=== PATIENT | male | born 1955 | race Caucasian/White ===

== ENCOUNTER 2020-06-19 08:43 | Outpatient (REF) | payer BC, SELFPAY ==
[2020-06-19 09:19] LABS: MANUAL DIFF FLAG NO
[2020-06-19 09:41] LABS: Glucose Urine UA NEG (NEG); Leukocyte Esterase Urine NEG (NEG); Nitrite Urine NEG (NEG); PH 6.5 (5.0-8.0); Specific Gravity - Urine 1.025 (1.005-1.025); Urine Blood NEG (NEG); Urine Ketones NEG (NEG); Urine Protein NEG (NEG-TRACE)
[2020-06-19 09:43] LABS: Basophils Absolute Auto 0.1 X10*3/uL (0.0-0.2); Basophils Percent Auto 0.7 % (0-2); Eosinophils Absolute Auto 0.2 X10*3/uL (0.0-0.4); Eosinophils Percent Auto 2.9 % (0-4); Hematocrit 48.1 % (42-52); Hemoglobin 15.7 g/dl (14.0-18.0); Imm Gran Abs Auto 0.04 X10*3/uL (0.00-0.03); Imm Gran Pct Auto 0.5 % (0.0-0.4); Lymphocytes Absolute Auto 3.4 X10*3/uL (1.2-4.9); Mean Corpuscular HGB Conc 32.6 g/dl (31.0-36.0); Mean Corpuscular Hemoglobin 30.4 pg (27.0-33.0); Mean Platelet Volume 10.2 fL (9.4-12.4); Monocytes Absolute Auto 0.5 X10*3/uL (0.1-1.2); Monocytes Percent Auto 6.7 % (2-11); Neutrophils Absolute Auto 3.2 X10*3/uL (2.0-8.3); Neutrophils Percent Auto 43.2 % (45-73); Platelet Count 256 X10*3/uL (160-400); Red Blood Count 5.17 X10*6/uL (4.60-5.80); Red Cell Distribution Width 12.9 % (11.0-16.0); White Blood Count 7.4 X10*3/uL (4.8-10.8)
[2020-06-19 09:44] LABS: Appearance Urine CLEAR; Color Urine YELLOW
[2020-06-19 10:19] LABS: Alanine Aminotransferase 24 U/L (0-40); Albumin Level 4.1 g/dL (3.5-5.0); Alkaline Phosphatase 80 U/L (39-117); Anion Gap 11 (12-20); Aspartate Amino Transferase 20 U/L (5-37); Bilirubin Total 0.7 mg/dL (0.0-1.0); Blood Urea Nitrogen 17 mg/dL (9-16); Calcium 8.7 mg/dL (8.4-10.2); Carbon Dioxide 32 mmol/L (22-29); Chloride 103 mmol/L (96-108); Cholesterol 204 mg/dL; Estimated Glomerular Filt Rate > 60; Glucose Fasting 89 mg/dL (60-99); HDL Cholesterol 47 mg/dL; LDL Cholesterol Calculated 128 mg/dl; Potassium 4.1 mmol/L (3.3-5.1); Sodium 142 mmol/L (135-145); Total Protein 6.6 g/dL (6.5-8.0); Triglycerides 149 mg/dL
[2020-06-19 10:43] LABS: Prostate Specific Antigen 1.03 ng/mL (<0.05-4.0)
== END 2020-06-19 08:44 | disposition home or self-care (01) ==
LOC: HO.LAB 08:43
PROVIDERS: PCP Internal Medicine; Visit Provider Internal Medicine
DX: Z12.5 Encounter for screening for malignant neoplasm of prostate (principal); Z00.00 Encounter for general adult medical examination without abnormal findings; E78.00 Pure hypercholesterolemia, unspecified; D72.820 Lymphocytosis (symptomatic); I10 Essential (primary) hypertension
CPT/HCPCS: 36415; 80053; 80061; 81003; 84153; 85025

== ENCOUNTER 2021-07-02 10:24 | Outpatient (REF) | payer MEDICARE, SELFPAY ==
[2021-07-02 10:27] LABS: MANUAL DIFF FLAG NO
[2021-07-02 10:54] LABS: Basophils Percent Auto 0.5 % (0-2); Eosinophils Absolute Auto 0.2 X10*3/uL (0.0-0.4); Eosinophils Percent Auto 2.5 % (0-4); Hematocrit 47.6 % (42.0-52.0); Hemoglobin 15.4 g/dl (14.0-18.0); Imm Gran Abs Auto 0.03 X10*3/uL (0.00-0.03); Imm Gran Pct Auto 0.4 % (0.0-0.4); Lymphocytes Absolute Auto 4.2 X10*3/uL (1.2-4.9); Mean Corpuscular HGB Conc 32.4 g/dl (31.0-36.0); Mean Corpuscular Hemoglobin 29.8 pg (27.0-33.0); Mean Corpuscular Volume 92.1 fL (80.0-98.0); Mean Platelet Volume 10.2 fL (9.4-12.4); Monocytes Absolute Auto 0.6 X10*3/uL (0.1-1.2); Monocytes Percent Auto 6.6 % (2-11); Neutrophils Absolute Auto 3.4 x10*3/uL (2.0-8.3); Platelet Count 287 X10*3/uL (160-400); Red Blood Count 5.17 X10*6/uL (4.60-5.80); Red Cell Distribution Width 12.6 % (11.0-16.0); White Blood Count 8.4 X10*3/uL (4.8-10.8)
[2021-07-02 11:01] LABS: Appearance Urine CLEAR; Color Urine YELLOW; Glucose Urine UA NEG (NEG); Leukocyte Esterase Urine NEG (NEG); Nitrite Urine NEG (NEG); PH 7.5 (5.0-8.0); Urine Blood NEG (NEG); Urine Ketones NEG (NEG); Urine Protein NEG (NEG-TRACE)
[2021-07-02 11:04] LABS: Alanine Aminotransferase 22 U/L (0-40); Alkaline Phosphatase 85 U/L (39-117); Anion Gap 15 (12-20); Aspartate Amino Transferase 20 U/L (5-37); Bilirubin Total 0.8 mg/dL (0.0-1.0); Blood Urea Nitrogen 16 mg/dL (9-16); Calcium 9.1 mg/dL (8.4-10.2); Carbon Dioxide 29 mmol/L (22-29); Chloride 102 mmol/L (96-108); Cholesterol 209 mg/dL; Estimated Glomerular Filt Rate > 60; Glucose Fasting 94 mg/dL (60-99); HDL Cholesterol 43 mg/dL; LDL Cholesterol Calculated 136 mg/dl; Potassium 3.9 mmol/L (3.3-5.1); Sodium 142 mmol/L (135-145); Total Protein 6.7 g/dL (6.5-8.0); Triglycerides 152 mg/dL
[2021-07-02 11:30] LABS: PSA,Total (Free>4and<10) 0.93 ng/mL (0.00-4.00)
== END 2021-07-02 10:25 | disposition home or self-care (01) ==
LOC: HO.LNP 10:24
PROVIDERS: PCP Internal Medicine; Visit Provider Internal Medicine
DX: Z12.5 Encounter for screening for malignant neoplasm of prostate (principal); I10 Essential (primary) hypertension; E78.00 Pure hypercholesterolemia, unspecified; D72.820 Lymphocytosis (symptomatic)
CPT/HCPCS: 80053; 80061; 81003; 84153; 85025

== ENCOUNTER 2022-07-04 11:07 | Outpatient (REF) | payer MEDICARE, SELFPAY ==
[2022-07-04 11:10] LABS: MANUAL DIFF FLAG NO
[2022-07-04 11:59] LABS: Appearance Urine Clear; Basophils Absolute Auto 0.1 X10*3/uL (0.0-0.2); Basophils Percent Auto 0.7 % (0-2); Color Urine Yellow; Eosinophils Absolute Auto 0.1 X10*3/uL (0.0-0.4); Eosinophils Percent Auto 1.6 % (0-4); Glucose Urine UA Negative (Negative); Hematocrit 46.9 % (42.0-52.0); Hemoglobin 15.6 g/dl (14.0-18.0); Imm Gran Pct Auto 1.3 % (0.0-0.4); Leukocyte Esterase Urine Negative (Negative); Lymphocytes Percent Auto 53.3 % (20-40); Mean Corpuscular HGB Conc 33.3 g/dl (31.0-36.0); Mean Corpuscular Hemoglobin 31.5 pg (27.0-33.0); Mean Corpuscular Volume 94.6 fL (80.0-98.0); Mean Platelet Volume 9.7 fL (9.4-12.4); Monocytes Absolute Auto 0.8 X10*3/uL (0.1-1.2); Monocytes Percent Auto 10.5 % (2-11); Neutrophils Absolute Auto 2.4 x10*3/uL (2.0-8.3); Neutrophils Percent Auto 32.6 % (45-73); Nitrite Urine Negative (Negative); Platelet Count 206 X10*3/uL (160-400); Red Blood Count 4.96 X10*6/uL (4.60-5.80); Urine Blood Negative (Negative); Urine Ketones Negative (Negative); Urine Protein Negative (Neg-Trace); White Blood Count 7.5 X10*3/uL (4.8-10.8)
[2022-07-04 12:09] LABS: Bacteria Urine None Seen (None Seen); Hyaline Casts Urine 0-2 /LPF (0-2); RBC Urine 0-2 /HPF (0-2); Squamous Epithelial Cell Urine 0-2 /HPF (0-2); WBC Urine 0-5 /HPF (0-5)
[2022-07-04 12:56] LABS: Alanine Aminotransferase 74 U/L (0-40); Albumin Level 3.8 g/dL (3.5-5.0); Alkaline Phosphatase 41 U/L (39-117); Anion Gap 11 (12-20); Aspartate Amino Transferase 27 U/L (5-37); Bilirubin Total 1.3 mg/dL (0.0-1.0); Blood Urea Nitrogen 23 mg/dL (9-16); Calcium 8.6 mg/dL (8.4-10.2); Carbon Dioxide 31 mmol/L (22-29); Chloride 105 mmol/L (96-108); Cholesterol 177 mg/dL; Estimated Glomerular Filt Rate > 60; Glucose Fasting 78 mg/dL (60-99); HDL Cholesterol 57 mg/dL; LDL Cholesterol Calculated 93 mg/dl; Potassium 3.7 mmol/L (3.3-5.1); Sodium 143 mmol/L (135-145); Total Protein 5.6 g/dL (6.5-8.0); Triglycerides 137 mg/dL
[2022-07-04 13:03] LABS: PSA,Total (Free>4and<10) 0.57 ng/mL (0.00-4.00)
== END 2022-07-04 11:08 | disposition home or self-care (01) ==
LOC: HO.LNP 11:07
PROVIDERS: Visit Provider Internal Medicine
DX: I10 Essential (primary) hypertension (principal); E78.00 Pure hypercholesterolemia, unspecified; D72.820 Lymphocytosis (symptomatic); Z12.5 Encounter for screening for malignant neoplasm of prostate
CPT/HCPCS: 80053; 80061; 81001; 84153; 85025

== ENCOUNTER 2023-01-19 10:47 | Outpatient (REF) | payer MEDICARE, SELFPAY ==
[2023-01-19 11:29] LABS: Cholesterol 218 mg/dL (<200); HDL Cholesterol 54 mg/dL (>40); LDL Cholesterol Calculated 134 mg/dL (<100); Triglycerides 151 mg/dL (<150)
[2023-01-19 11:30] LABS: Alanine Aminotransferase 31 U/L (0-40); Albumin Level 3.7 g/dL (3.5-5.0); Alkaline Phosphatase 43 U/L (39-117); Aspartate Amino Transferase 17 U/L (5-37); Bilirubin Direct 0.2 mg/dL (0.0-0.5); Bilirubin Total 0.6 mg/dL (0.0-1.0); Total Protein 5.9 g/dL (6.5-8.0)
[2023-01-19 11:57] LABS: Reflex LDLD? No
== END 2023-01-19 10:48 | disposition home or self-care (01) ==
LOC: HO.LNP 10:47
PROVIDERS: PCP Internal Medicine; Visit Provider Internal Medicine
DX: E78.00 Pure hypercholesterolemia, unspecified (principal)
CPT/HCPCS: 80061; 80076

== ENCOUNTER 2023-07-09 12:16 | Outpatient (REF) | payer MEDICARE, SELFPAY ==
[2023-07-09 12:20] LABS: MANUAL DIFF FLAG NO
[2023-07-09 13:01] LABS: Appearance Urine Cloudy; Color Urine Yellow; Glucose Urine UA Negative (Negative); Leukocyte Esterase Urine Negative (Negative); Nitrite Urine Negative (Negative); UMIC TRIGGER UACC YES; Urine Blood Negative (Negative); Urine Ketones Negative (Negative); Urine Protein 30 (1+) mg/dL (Neg-Trace)
[2023-07-09 13:03] LABS: Basophils Absolute Auto 0.1 X10*3/uL (0.0-0.2); Basophils Percent Auto 0.7 % (0-2); Eosinophils Absolute Auto 0.3 X10*3/uL (0.0-0.4); Eosinophils Percent Auto 3.9 % (0-4); Hemoglobin 16.3 g/dl (14.0-18.0); Imm Gran Abs Auto 0.02 X10*3/uL (0.00-0.03); Imm Gran Pct Auto 0.3 % (0.0-0.4); Lymphocytes Absolute Auto 3.6 X10*3/uL (1.2-4.9); Lymphocytes Percent Auto 47.5 % (20-40); Mean Corpuscular HGB Conc 33.3 g/dl (31.0-36.0); Mean Corpuscular Hemoglobin 30.5 pg (27.0-33.0); Mean Corpuscular Volume 91.8 fL (80.0-98.0); Mean Platelet Volume 9.8 fL (9.4-12.4); Monocytes Absolute Auto 0.5 X10*3/uL (0.1-1.2); Monocytes Percent Auto 6.4 % (2-11); Neutrophils Absolute Auto 3.2 x10*3/uL (2.0-8.3); Neutrophils Percent Auto 41.2 % (45-73); Platelet Count 305 X10*3/uL (160-400); Red Blood Count 5.34 X10*6/uL (4.60-5.80); Red Cell Distribution Width 12.3 % (11.0-16.0); White Blood Count 7.7 X10*3/uL (4.8-10.8)
[2023-07-09 13:15] LABS: Alanine Aminotransferase 20 U/L (0-40); Albumin Level 4.1 g/dL (3.5-5.0); Alkaline Phosphatase 67 U/L (39-117); Anion Gap 14 (12-20); Aspartate Amino Transferase 23 U/L (5-37); Bilirubin Total 0.5 mg/dL (0.0-1.0); Blood Urea Nitrogen 14 mg/dL (9-16); Calcium 9.1 mg/dL (8.4-10.2); Carbon Dioxide 32 mmol/L (22-29); Chloride 102 mmol/L (96-108); Cholesterol 232 mg/dL (<200); Estimated Glomerular Filt Rate > 60; Glucose Fasting 83 mg/dL (60-99); HDL Cholesterol 43 mg/dL (>40); LDL Cholesterol Calculated 152 mg/dL (<100); Potassium 3.9 mmol/L (3.3-5.1); Sodium 144 mmol/L (135-145); Total Protein 6.9 g/dL (6.5-8.0); Triglycerides 185 mg/dL (<150)
[2023-07-09 13:25] LABS: Bacteria Urine None Seen (None Seen); Hyaline Casts Urine 0-2 /LPF (0-2); RBC Urine 0-2 /HPF (0-2); Squamous Epithelial Cell Urine 0-2 /HPF (0-2); UACC Culture Trigger YES
[2023-07-09 13:34] LABS: PSA,Total (Free>4and<10) 0.55 ng/mL (0.00-4.00)
== END 2023-07-09 12:17 | disposition home or self-care (01) ==
LOC: HO.LNP 12:16
PROVIDERS: Visit Provider Internal Medicine
DX: I10 Essential (primary) hypertension (principal); E78.00 Pure hypercholesterolemia, unspecified; D72.820 Lymphocytosis (symptomatic); R82.90 Unspecified abnormal findings in urine; Z12.5 Encounter for screening for malignant neoplasm of prostate
CPT/HCPCS: 80053; 80061; 81001; 84153; 85025; 87086

== ENCOUNTER 2024-07-11 10:52 | Outpatient (REF) | payer MEDICARE, SELFPAY ==
[2024-07-11 10:55] LABS: MANUAL DIFF FLAG NO
[2024-07-11 11:06] LABS: Basophils Absolute Auto 0.1 X10*3/uL (0.0-0.2); Basophils Percent Auto 0.8 % (0-2); Eosinophils Absolute Auto 0.3 X10*3/uL (0.0-0.4); Eosinophils Percent Auto 3.4 % (0-4); Hematocrit 45.6 % (42.0-52.0); Imm Gran Abs Auto 0.04 X10*3/uL (0.00-0.03); Imm Gran Pct Auto 0.5 % (0.0-0.4); Lymphocytes Absolute Auto 3.6 X10*3/uL (1.2-4.9); Lymphocytes Percent Auto 46.6 % (20-40); Mean Corpuscular HGB Conc 32.9 g/dl (31.0-36.0); Mean Corpuscular Hemoglobin 30.6 pg (27.0-33.0); Mean Corpuscular Volume 93.1 fL (80.0-98.0); Mean Platelet Volume 9.9 fL (9.4-12.4); Monocytes Absolute Auto 0.5 X10*3/uL (0.1-1.2); Monocytes Percent Auto 5.9 % (2-11); Neutrophils Absolute Auto 3.3 x10*3/uL (2.0-8.3); Neutrophils Percent Auto 42.8 % (45-73); Platelet Count 298 X10*3/uL (160-400); Red Cell Distribution Width 13.2 % (11.0-16.0); White Blood Count 7.7 X10*3/uL (4.8-10.8)
[2024-07-11 11:08] LABS: Appearance Urine Clear; Color Urine Yellow; Glucose Urine UA Negative (Negative); Leukocyte Esterase Urine Negative (Negative); Nitrite Urine Negative (Negative); Urine Blood Negative (Negative); Urine Ketones Negative (Negative); Urine Protein Negative (Neg-Trace)
[2024-07-11 11:13] LABS: Bacteria Urine None Seen (None Seen); Hyaline Casts Urine 0-2 /LPF (0-2); RBC Urine 0-2 /HPF (0-2); Squamous Epithelial Cell Urine 0-2 /HPF (0-2); WBC Urine 0-5 /HPF (0-5)
[2024-07-11 11:33] LABS: Alanine Aminotransferase 29 U/L (0-40); Albumin Level 3.8 g/dL (3.5-5.0); Alkaline Phosphatase 62 U/L (39-117); Anion Gap 11 (12-20); Aspartate Amino Transferase 25 U/L (5-37); Bilirubin Total 0.4 mg/dL (0.0-1.0); Blood Urea Nitrogen 21 mg/dL (9-16); Calcium 8.9 mg/dL (8.4-10.2); Carbon Dioxide 32 mmol/L (22-29); Chloride 104 mmol/L (96-108); Cholesterol 209 mg/dL (<200); Estimated Glomerular Filt Rate > 60; Glucose Fasting 84 mg/dL (60-99); HDL Cholesterol 46 mg/dL (>40); LDL Cholesterol Calculated 134 mg/dL (<100); Potassium 3.9 mmol/L (3.3-5.1); Sodium 143 mmol/L (135-145); Total Protein 6.7 g/dL (6.5-8.0); Triglycerides 148 mg/dL (<150)
[2024-07-11 11:39] LABS: PSA,Total (Free>4and<10) 0.82 ng/mL (0.00-4.00)
--- OUTSIDE RECORDS SUMMARY | 2024-07-11 12:51 | XMS_ITS | Clinical Summary ---
Author Organization [facility] Address [address] [id number] Care Team Providers Care Cook Fishing Vessel Name Role Phone Kurtis Garcia MD Primary Care Provider Allergies Active Allergy Reactions Criticality Noted Date Comments Sulfa Antibiotics Other (See Comments) High 07/14/19 24 No longer uses after having an issue With WBC's dropping ended up in ICU. Medications Medication Sig Dispensed Refills Start Date End Date Status adalimumab (Humira, 2 Pen,) 40 MG/0.8ML injection Inject 0.8 mL (40 mg total) under the skin every 14 (fourteen) days. Stopping 07/19/[address] Burns 0 Active lisinopril-hydroCHLO ROthiazide (PRINZIDE,ZESTORETIC ) tablet 20-25 mg Take 1 tablet by mouth daily. 0 Active oxyCODONE (ROXICODONE) 5 MG immediate release tablet Take 1 tablet (5 mg total) by mouth every 4 (four) hours as needed for pain. 40 tablet 0 07/27/2023 Active methocarbamol (ROBAXIN) 750 MG tablet Take 1 tablet (750 mg total) by mouth 4 (four) times a day. 45 tablet 0 07/27/2023 Active ondansetron (Zofran) 4 MG tablet Take 1 tablet (4 mg total) by mouth daily as needed for nausea. 20 tablet 0 07/27/2023 Active Active Problems Problem Noted Date Diagnosed Date Psoriatic arthritis 07/15/2023 Temporal arteritis 07/15/2023 Obesity (BMI 30-39.9) 07/15/2023 Osteoarthritis of right hip 07/15/2023 History of hypertension 07/15/2023 Family History Medical History Relation Name Comments Heart disease Father Anesthesia problems Sister Pulmonary embolism Sister Relation Name Status Comments Father (Age 60) Mother (Age 90) dementia Sister Social History Tobacco Use Types Packs/Day Years Used Date Smoking Tobacco: Never Smokeless Tobacco: Never Tobacco Cessation:Counseling Given: Not Answered Alcohol Use Standard Drinks/Week Comments Not Currently 0 (1 standard drink = 0.6 oz pur e alcohol) Sex and Gender Information Value Date Recorded Sex Assigned at Male 07/14/2023 9:26 AM EST Gender Identity Male 07/14/2023 9:26 AM EST Sexual Orientation Not on file Job Start Date Occupation Industry Not on file Not on file Not on file Last Filed Vital Signs Vital Sign Reading Time Taken Comments Blood Pressure 142/77 07/27/2023 11:00 AM EDT Pulse 79 07/27/2023 11:00 AM EDT Temperature 36.6 ??C (97.8 ??F) 07/27/2023 10:45 AM E DT Respiratory Rate 15 07/27/2023 11:00 AM EDT Oxygen Saturation 96% 07/27/2023 11:00 AM EDT Inhaled Oxygen Concentration - - Weight 102.1 kg (225 lb) 07/27/2023 5:30 AM EDT Height 177.8 cm (5' 10 ) 07/27/2023 5:30 AM EDT Body Mass Index 32.28 07/27/2023 5:30 AM EDT Plan of Treatment Health Maintenance Due Date Last Done Comments Hepatitis C Screening 1955 COVID-19 Vaccine (#1) 1955 Depression Screening 1967 BMI Counseling 1973 Preventative Health Evaluation 1973 DTap / Tdap / Td (1 - Tdap) 1974 Colon Cancer Screening (Colonoscopy) 2000 Shingrix-Zoster Vaccine (1 of 2) 2005 Fall Risk Assessment 2020 Pneumococcal Vaccine (1 of 1 - PCV) 2020 Influenza Vaccine (#1) 2024 RSV Adult > 60+ Yrs or Pregn ant (1 - 1-dose 75+ series) 2030 Hepatitis B Vaccines Aged Out No long er eligible based on patient's age to complete this topic RSV Ped < 20 months Aged Out No longe r eligible based on patient's age to complete this topic Medical Devices Implanted Type Area Negative Checker Device Identifier Shelf Expiration Date Model / Serial / Lot Tritanium Cluster Hole Shell 56mm Stry-Howm [id number] - [id number] Implanted:Qty: 1 on 07/27/2023 by Jamshid Burns MD at [facility] Right: Hip [employer] [id number] 05/27/2028 702-04-56F / / [id number] Hip Insert Trdnt 0deg 40mm Stry-Howm [id number] - [id number] Implanted:Qty: 1 on 07/27/2023 by Jamshid Burns MD at [facility] and [facility] Right: Hip [employer] [id number] 04/25/2028 623-00-40F / / [id number] Lp Hex Screw 6.5x25mm Stry-Howm [id number] 58 - [id number] Implanted:Qty: 1 on 07/27/2023 by Jamshid Burns MD at [facility] and [facility] Right: Hip [employer] [id number] 05/24/2028 [id number] / / [id number] Lp Hex Screw 6.5x30mm Stry-Howm [id number] 78 - [id number] Implanted:Qty: 1 on 07/27/2023 by Jamshid Burns MD at [facility] and [facility] Right: Hip [employer] [id number] 12/23/2027 1685-7662 / / [id number] Hip Head Delta Taper 40mm Stry-How [id number] 031 - [id number] Implanted:Qty: 1 on 07/27/2023 by Jamshid Burns MD at [facility] and [facility] Right: Hip [employer] [id number] 05/06/2028 6519-1-040 / / [id number] Hip Stem Collared High Sz 5 Stry-Howm 1832-1383-2408 00 - [id number] Implanted:Qty: 1 on 07/27/2023 by Jamshid Burns MD at [facility] and [facility] Right: Hip [employer] [id number] 05/19/2028 1090-5548 / / [id number] Hip Sleeve Adapt V40 -2.5mm Stry-How 8130-I-[id number] - [id number] Implanted:Qty: 1 on 07/27/2023 by Jamshid Burns MD at [facility] Right: Hip [employer] [id number] 05/13/2028 6519-T-025 / / [id number] Advance Directives For more information, please contact: [phone] Latest Code Status on File Code Status Date Activated Date Inactivated Comments Full Code 07/27/2023 8:53 AM 07/27/2023 8:03 PM This code status was ascertained in the following way: discussed with patient. Code Status History Code Status Date Activated Date Inactivated Comments Full Code 07/27/2023 5:07 AM 07/27/2023 8:53 AM This code status was ascertained in the following way: discussion with patient . Care Teams Cook Fishing Vessel Relationship Specialty Start Date End Date Kurtis Garcia MD [address] [place] [address] PCP - General Internal Medicine 07/23/23
--- OUTSIDE RECORDS SUMMARY | 2024-07-11 12:51 | XMS_ITS ---
Author Organization Kurtis Garcia MD Address [address] [place], [place] [id number] Care Team Providers Care Laboratory Mechanical Technician Name Role Phone Kurtis Garcia Primary Care Provider [phone] Results Component Value Reference Range Notes Complete Blood Count Auto Di ff (Not yet reviewed by provider) Interpretation: Performing Lab:[facility], [address] [place] [id number] Notes/Report: White Blood Count 7.7 4.8-10.8 X10*3/uL Red Blood Count 4.90 4.60-5.80 X10*6/uL Hemoglobin 15.0 14.0-18.0 g/dl Hematocrit 45.6 42.0-52.0 % Mean Corpuscular Volume 93.1 80.0-98.0 fL Mean Corpuscular Hemoglobin 30.6 27.0-33.0 pg Mean Corpuscular HGB Conc 32.9 31.0-36.0 g/dl Red Cell Distribution Width 13.2 11.0-16.0 % Platelet Count 298 160-400 X10*3/uL Mean Platelet Volume 9.9 9.4-12.4 fL Neutrophils Percent Auto 42.8 45-73 % Imm Gran Pct Auto 0.5 0.0-0.4 % Lymphocytes Percent Auto 46.6 20-40 % Monocytes Percent Auto 5.9 2-11 % Eosinophils Percent Auto 3.4 0-4 % Basophils Percent Auto 0.8 0-2 % NRBC Pct Auto 0.0 0.0-0.2 /100WBC Neutrophils Absolute Auto 3.3 2.0-8.3 x10*3/u L Imm Gran Abs Auto 0.04 0.00-0.03 X10*3/uL Lymphocytes Absolute Auto 3.6 1.2-4.9 X10*3/u L Monocytes Absolute Auto 0.5 0.1-1.2 X10*3/uL Eosinophils Absolute Auto 0.3 0.0-0.4 X10*3/u L Basophils Absolute Auto 0.1 0.0-0.2 X10*3/uL NRBC Abs Auto 0.000 0.0-0.012 X10*3/uL Comprehensive Jackson. Panel Fa st Reviewed date:07/11/2024 12:33:03 PM Interpretation: Performing Lab:[address] [phone] Notes/Report: Sodium 143 135-145 mmol/L Potassium 3.9 3.3-5.1 mmol/L Chloride 104 96-108 mmol/L Carbon Dioxide 32 22-29 mmol/L Anion Gap 11 12-20 Blood Urea Nitrogen 21 9-16 mg/dL Creatinine 0.77 0.5-1.4 mg/dL Estimated Glomerular Filt Rate > 60 Chronic Kidney Disease: Estimated GFR < 60 mL/min/1.73m2 Severe Kidney Disease: Estimated GFR < 15 mL/min/1.73m2 Glucose Fasting 84 60-99 mg/dL Calcium 8.9 8.4-10.2 mg/dL Bilirubin Total 0.4 0.0-1.0 mg/dL Aspartate Amino Transferase 25 5-37 U/L Alanine Aminotransferase 29 0-40 U/L Total Protein 6.7 6.5-8.0 g/dL Albumin Level 3.8 3.5-5.0 g/dL Alkaline Phosphatase 62 39-117 U/L Lipid Panel Reviewed date:07/11/2024 12:33:28 PM Interpretation: Performing Lab:[address] [phone] Notes/Report: Triglycerides 148 <150 mg/dL Desirable Triglyceride: less than 150 mg/dL Borderline High Triglyceride 150-199 mg/dL High Triglyceride: 200-499 mg/dL Very High Triglyceride: greater than or equal to 5OO mg/dL Cholesterol 209 <200 mg/dL Desirable Cholesterol: less than 200 mg/dL Borderline High Cholesterol: 200-239 mg/dL High Cholesterol: greater than 239 mg/dL LDL Cholesterol Calculated 134 <100 mg/dL Desirable LDL: less than 100 mg/dL Near Optimal/Above Optimal LDL: 110-129 mg/dL Borderline High LDL: 130-159 mg/dL High LDL: 160-189 mg/dL Very High LDL: greater than or equal to 190 mg/dL HDL Cholesterol 46 >40 mg/dL Desirable HDL: greater than 40 mg/dL Note: This HDL assay may give artificially low results in patients with liver disease. PSA,Total (Free>4and<10) Reviewed date:07/11/2024 12:33:10 PM Interpretation: Performing Lab:[address] [phone] Notes/Report: PSA,Total (Free>4and<10) 0.82 0.00-4.00 ng/mL A Free PSA was not performed: The percentage of Free PSA can be used to enhance the differentiation of prostate cancer from benign prostatic disease in subjects whose PSA levels are between 4.0 and 10.0 ng/mL. For subjects whose PSA levels are below 4.0 or above 10.0 ng/mL, the risk of prostate cancer is determined on the basis of the PSA alone. Therefore the % Free PSA is recommended only for those subjects whose PSA levels are between 4.0 and 10.0 ng/mL. PSA methodology: Terry Alinity i Chemiluminescent Microparticle Immunoassay (CMIA) UA ClnCatch+Micro w/rflx Cul t Reviewed date:07/11/2024 12:37:03 PM Interpretation: Performing Lab:[address] [phone] Notes/Report: Urine, Clean Catch Color Urine Yellow Appearance Urine Clear PH 7.0 5.0-9.0 Glucose Urine UA Negative Negative mg/dL Urine Blood Negative Negative Specific Leadore - Urine 1.020 1.005-1.025 Urine Protein Negative Neg-Trace mg/dL Urine Ketones Negative Negative mg/dL Nitrite Urine Negative Negative Leukocyte Esterase Urine Negative Negative RBC Urine 0-2 0-2 /HPF WBC Urine 0-5 0-5 /HPF Squamous Epithelial Cell Urine 0-2 0-2 /HPF Bacteria Urine None Seen None Seen Hyaline Casts Urine 0-2 0-2 /LPF REASON FOR VISIT FASTING LABS Encounters Encounter Location Date Provider Diagnosis Kurtis Garcia MD [address] [place] [address] Drive [address] [place], [place] [phone] 07/11/2024 Kurtis Garcia Essential hypertensi on I10 ; Pure hypercholesterolemia E78.00 and Lymphocytosis D72.820 Assessments Encounter Date Diagnosis (ICD Code) Assessment Notes Treatment Notes Treatment Clinical Notes Section Notes 07/11/2024 Essential hypertensi on (ICD-10 - I10) 07/11/2024 Pure hypercholesterolemia (ICD-10 - E78.00) 07/11/2024 Lymphocytosis (ICD-1 0 - D72.820) Plan Of Treatment Pending Test Test Name Order Date Complete Blood Count Auto Diff Next Appt Details Provider Name:Kurtis Cerda ier, 07/18/2024 08:30:00 AM, [address] [place] [address], [address], [place], [place], [phone], Progress Notes * Anupam DAY BDOB: (69 yo M)Acc No.[id number]:07/11/2024 Progress Note Patient:?Anupam DAY B Provider:?Kurtis Garcia MD :1955???Age:69 Y???Sex:Male Jason e:07/11/2024 Address:[address] [place], [place] [id number] Subjective: * Chief Complaints: * ???1. FASTING LABS. * Medical History:? Objective: * Vitals:? Assessment: * Assessment: 1.?Essential hypertension - I10 (Primary)???2.?Pure hypercholesterolemia - E78.00???3.?Lymphocytosis - D72.820??? Plan: * Treatment: 2.?Pure hypercholesterolemia ?LAB: Complete Blood Count Auto Diff (Collection Date & Time - 07/11/2024 07:00 AM) ?LAB: Comprehensive Jackson. Panel Fast (Collection Date & Time - 07/11/2024 07:00 AM) ?LAB: Lipid Panel (Collection Date & Time - 07/11/2024 07:00 AM) ?LAB: PSA,Total (Free>4and<10) (Collection Date & Time - 07/11/2024 07:00 AM) ?LAB: UA ClnCatch+Micro w/rflx Cult (Collection Date & Time - 07/11/2024 07:00 AM) 3.?Lymphocytosis?LAB: Complete Blood Count Auto Diff (Collection Date & Time - 07/11/2024 07:00 AM) ?LAB: Comprehensive Jackson. Panel Fast (Collection Date & Time - 07/11/2024 07:00 AM) ?LAB: Lipid Panel (Collection Date & Time - 07/11/2024 07:00 AM) ?LAB: PSA,Total (Free>4and<10) (Collection Date & Time - 07/11/2024 07:00 AM) ?LAB: UA ClnCatch+Micro w/rflx Cult (Collection Date & Time - 07/11/2024 07:00 AM) * Procedure Codes:?48924 VENIP UNCT, ROUTINE* * * The named appointment provid er may or may not be the originator of this progress note, and it is not deemed complete until electronically signed by the appointment provider. Sign off status: Pending * Provider:?Kurtis Garcia MD Date:?0 07/11/2024 Generated for Citlalli jiménez/Senthil/Keithsmitting on:?07/11/2024 12:51 PM EST
--- OUTSIDE RECORDS SUMMARY | 2024-07-11 12:52 | XMS_ITS ---
Author Organization Kurtis Garcia MD Address [address] [place], [place] [id number] Care Team Providers Care Location And Measurement Technician Name Role Phone Kurtis Garcia Primary Care Provider Allergies Allergen (clinical drug ingredient) Drug/Non Drug Allergy documented on EMR Reaction Allergy Type Onset Date Status atorvastatin Lipitor elevated lft Drug Allergy A ctive Substance with sulfonamide structure and antibacterial mechanism of action (substance) sulfa products (uncoded) low WBC Allergy Active REASON FOR VISIT tested positive for covid today Video [phone], c/o cough chest congestion runny nose x 2days Medications Medication SIG (Take, Route, Frequency, Duration) Notes Start Date End Date Status Tessalon Perles 100 MG 1 capsule as need ed Orally Three times a day for 10 days 03/04/2022 Not-Taking Aspir-Low 81 MG 1 tablet Orally Once a day for 30 day(s) Active Lisinopril-hydroCHLOROt hiazide 20-25 MG TAKE 1 TABLET ONCE DAILY for 90 Active Humira 40 mg/0.8 ml one shot Subcutaneou s every three weeks Active Paxlovid (300/100) 20 x 150 MG & 10 x 100MG 3 tablets Orally Twice a day for 5 day(s) 06/20/2024 Active Tylenol Arthritis Pain Active Vital Signs Height 69.25 in 06/20/2024 Weight 220 lbs 06/20/2024 BMI 32.25 kg/m2 06/20/2024 weight at home is 220 BP not taken at home no temp Encounters Encounter Location Date Provider Diagnosis Kurtis Garcia MD [address] [place], [place] [phone] 06/20/2024 Kurtis Garcia Acute COVID-19 U07.1 Assessments Encounter Date Diagnosis (ICD Code) Assessment Notes Treatment Notes Treatment Clinical Notes Section Notes 06/20/2024 Acute COVID-19 (ICD-10 - U07.1) patient verbalized understanding of medication and directions for use Plan Of Treatment Medication Medication Name Sig Start Date Stop Date Notes Paxlovid (300/100) 20 x 150 MG & 10 x 100MG 3 tablets Orally Twice a day for 5 day(s) 06/20/2024 Treatment Notes Assessment Notes Acute COVID-19 patient verbalized u nderstanding of medication and directions for use Next Appt Details Provider Name:Kurtis Cerda ier, 07/18/2024 08:30:00 AM, [address] [place] [address], [address], [place], [place], [phone], Progress Notes * Anupam DAY BDOB: (69 yo M)Acc No.[id number]:06/20/2024 Patient:?Anupam DAY Provider:?Kurits Garcia MD :1955???Age:69 Y???Sex:Male Jason e:06/20/2024 Address:[address] [place], [place] [phone] Subjective: * Chief Complaints: * ???tested positive for covid today Video [phone]/o cough chest congestion runny nose x 2days * HPI: ???Symptom(s):?Telehealth?Location of provider rendering services:?[address] [place] [address], [address],?Location of patient:?at address listed in demographics for today's visit,?Patient identification confirmed using:?Name, ,?Telehealth method:?Video conference where patient is visible to the provider of care,?Consent:?Patient verbally consented to treatment, Patient verbally consented to billing insurance company, Patient informed of any privacy concerns related to method of visit,?Total time spend talking with patient (minutes)?18.?patient is a 69 yo male here as emergency for covid. woke up 3 days ago and tested and was negative. congested especially at night. sweating no fever. * ROS:?General/Constitutional:?Denies?Chills.?Denies?Fatigue.?Denies?Fever.?ENT:?Patient denies?decreased sense of smell, any loss of taste, sore throat.?Denies?Sore throat.?Respiratory:?Admits?Cough.?Denies?Shortness of breath at rest.?Denies?Shortness of breath with exertion.?Admits?Sputum production.?Gastrointestinal:?Denies?Diarrhea.?Denies?Nausea.?Musculoskeletal:?Patient denies?muscle aches.?Peripheral Vascular:?Patient denies?red and blue toes.? * Medical History:? * Surgical History:? * Hospitalization/Major Diagno stic Procedure:? * Medications:?TakingTylenol A rthritis Pain Aspir-Low 81 MG Tablet Delayed Release 1 tablet Orally Once a day Lisinopril-hydroCHLOROthiazide 20-25 MG Tablet TAKE 1 TABLET ONCE DAILY Humira 40 mg/0.8 ml Kit one shot Subcutaneous every three weeks Taking Tylenol Arthritis Pain Taking Aspir-Low 81 MG Tablet Delayed Release 1 tablet Orally Once a day Taking Lisinopril-hydroCHLOROthiazide 20-25 MG Tablet TAKE 1 TABLET ONCE DAILY Taking Humira 40 mg/0.8 ml Kit one shot Subcutaneous every three weeks Not-Taking/PRNTessalon Perles 100 MG Capsule 1 capsule as needed Orally Three times a day Medication List reviewed and reconciled with the patientNot-Taking/PRN Tessalon Perles 100 MG Capsule 1 capsule as needed Orally Three times a day Medication List reviewed and reconciled with the patient * Allergies:?sulfa products: l ow WBCLipitor: elevated lft Objective: * Vitals:?Ht: 69.25, Wt: 220, BMI:32.25, Wt-k.79. weight at home is 220? BP? not taken at home? no temp. * Examination: ???General Examination: ?GENERAL APPEARANCE:?alert, well hydrated, in no distress.? Assessment: * Assessment: 1.?Acute COVID-19 - U07.1 (P rimary)??? Plan: * Treatment: * Procedure Codes:? * * Sign off status: Completed true * Provider:?Kurtis Garcia MD Date:?0 06/20/2024 Generated for Citlalli jiménez/Senthil/Jennyitting on:?07/11/2024 12:51 PM EST History and Physical Notes * HPI (History of Present Illness) Category Sub-Category Detail Notes Category Not es Symptom(s) Telehealth Location of [facility] rendering services:: [address], [address] patient is a 69 yo male here as emergency for covid. woke up 3 days ago and tested and was negative. congested especially at night. sweating no fever Location of patient:: at address listed in demographics for today's visit Patient identification confirmed using:: Name, Telehealth method:: Video co nference where patient is visible to the provider of care Consent:: Patient verbally c onsented to treatment, Patient verbally consented to billing insurance company, Patient informed of any privacy concerns related to method of visit Total time spend talking with patient (m inutes): 18 Examination Category Sub-Category Detail Notes Category Not es General Examination GENERAL APPEARANCE: alert, w ell hydrated, in no distress
--- OUTSIDE RECORDS SUMMARY | 2024-07-11 12:52 | XMS_ITS ---
Author Organization Kurtis Garcia MD Address [address] [place], [place] [id number] Care Team Providers Care Acid Adjuster Name Role Phone Kurtis Garcia Primary Care Provider Allergies Allergen (clinical drug ingredient) Drug/Non Drug Allergy documented on EMR Reaction Allergy Type Onset Date Status atorvastatin Lipitor elevated lft Drug Allergy A ctive Substance with sulfonamide structure and antibacterial mechanism of action (substance) sulfa products (uncoded) low WBC Allergy Active REASON FOR VISIT 6 MO F/U Medications Medication SIG (Take, Route, Frequency, Duration) Notes Start Date End Date Status Humira 40 mg/0.8 ml one shot Subcutaneou s every three weeks Not-Taking Lisinopril-hydroCHLOROt hiazide 20-25 MG TAKE 1 TABLET ONCE DAILY Active Tessalon Perles 100 MG 1 capsule as need ed Orally Three times a day for 10 days 03/04/2022 Not-Taking Tylenol Arthritis Pain Active Aspir-Low 81 MG 1 tablet Orally Once a day for 30 day(s) Active Vital Signs Blood pressure systolic 152 mm Hg 01/14/20 24 Blood pressure diastolic 70 mm Hg 024 Height 69.25 in 01/14/2024 Weight 218 lbs 01/14/2024 BMI 31.96 kg/m2 01/14/2024 weight is down 13 pounds sin ce 724 Encounters Encounter Location Date Provider Diagnosis Kurtis Garcia MD [address] [place] [address] [place] [id number] 01/14/2024 Kurtis Garcia Essential hypertension I10 ; Rheumatoid arthritis in remission M06.9 and Giant cell arteritis M31.6 Assessments Encounter Date Diagnosis (ICD Code) Assessment Notes Treatment Notes Treatment Clinical Notes Section Notes 01/14/2024 Essential hypertension (ICD-10 - I10) well controlled is at goal, will continue current regimentandwill continue to monitor 01/14/2024 Rheumatoid arthritis in remission (ICD-10 - M06.9) well controlled 01/14/2024 Giant cell arteritis (ICD-10 - M31.6) no eviidence of any recurrence. has been off the meds for a year, will continue to monitor Plan Of Treatment Medication Medication Name Sig Start Date Stop Date Notes Lisinopril-hydroCHLOROthiazi de 20-25 MG TAKE 1 TABLET ONCE DAILY Treatment Notes Assessment Notes Essential hypertension well controlled i s at goal, will continue current regimentandwill continue to monitor Rheumatoid arthritis in remission well c ontrolled Giant cell arteritis no eviidence of any recurrence. has been off the meds for a year, will continue to monitor Next Appt Details Provider Name:Kurtis Cerda ier, 07/18/2024 08:30:00 AM, [address] [place] [address], Suite [facility], [place], [place], [phone], Progress Notes * Anupam DAY BDOB: (68 yo M)Acc No.[id number]:01/14/2024 Progress Notes Patient:?Anupam Day B Provider:?Kurtis Garcia MD :1955???Age:68 Y???Sex:Male Jason e:01/14/2024 Address:[address] [place], [place] [id number] Subjective: * Chief Complaints: * ???6 MO F/U * HPI: ???Symptom(s):? patient is a 68 yo male, here for 6 month follow up. not taking any meds for GCA. * ROS:?General/Constitutional:?Denies?Chills.?Denies?Fatigue.?Denies?Fever.?Denies?Headache.?ENT:?Patient denies?decreased sense of smell , any loss of taste , sore throat.?Denies?Sore throat.?Respiratory:?Denies?Cough.?Denies?Shortness of breath at rest.?Denies?Shortness of breath with exertion.?Gastrointestinal:?Denies?Diarrhea.?Denies?Nausea.?Musculoskeletal:?Patient denies?muscle aches.?Peripheral Vascular:?Patient denies?red and blue toes.? * Medical History:? * Surgical History:? * Hospitalization/Major Diagno stic Procedure:? * Medications:?TakingTylenol A rthritis Pain Aspir-Low 81 MG Tablet Delayed Release 1 tablet Orally Once a dayLisinopril-hydroCHLOROthiazide 20-25 MG Tablet TAKE 1 TABLET ONCE DAILY Taking Tylenol Arthritis Pain Taking Aspir-Low 81 MG Tablet Delayed Release 1 tablet Orally Once a dayTaking Lisinopril-hydroCHLOROthiazide 20-25 MG Tablet TAKE 1 TABLET ONCE DAILY Not-Taking/PRNHumira 40 mg/0.8 ml Kit one shot Subcutaneous every three weeksTessalon Perles 100 MG Capsule 1 capsule as needed Orally Three times a dayMedication List reviewed and reconciled with the patientNot-Taking/PRN Humira 40 mg/0.8 ml Kit one shot Subcutaneous every three weeksNot-Taking/PRN Tessalon Perles 100 MG Capsule 1 capsule as needed Orally Three times a dayMedication List reviewed and reconciled with the patient * Allergies:?sulfa products: l ow WBCLipitor: elevated lftyes[Allergies Verified] Objective: * Vitals:?Ht: 69.25, Wt:218, B AK:31.96, BP:152/70, Repeat BP:130/70 weight is down 13 pounds since 07-16-23. * Examination: ???General Examination: ?GENERAL APPEARANCE:? alert, well hydrated, in no distress , male.?HEAD:? normocephalic, no evidence of any tenderness over the temperal arteries.?SKIN:? good turgor.?HEART:? regular rate and rhythm, no murmurs, rubs, gallops.?LUNGS:? no wheezes, rales, rhonchi, good air movement, clear to auscultation bilaterally.? Assessment: * Assessment: 1.?Essential hypertension - I10 (Primary)?2.?Rheumatoid arthritis in remission - M06.9?3.?Giant cell arteritis - M31.6? Plan: * Treatment: 2.?Rheumatoid arthritis in r emission? Notes: well controlled?? 3.?Giant cell arteritis? Notes: no eviidence of any recurrence. has been off the meds for a year, will continue to monitor?? * Procedure Codes:? * * Sign off status: Completed true * Provider:?Kurtis Garcia MD Date:?0 01/14/2024 Generated for iCtlalli jiménez/Senthil/eTransmitting on:?07/11/2024 12:51 PM EST History and Physical Notes * HPI (History of Present Illness) Category Sub-Category Detail Notes Category Not es Symptom(s) patient is a 68 yo male, here for 6 month follow up. not taking any meds for GCA Examination Category Sub-Category Detail Notes Category Not es General Examination GENERAL APPEARANCE: alert, w ell hydrated, in no distress , male HEAD: normocephalic, no ev idence of any tenderness over the temperal arteries HEART: regular rate and rhy thm, no murmurs, rubs, gallops LUNGS: no wheezes, rales, r honchi, good air movement, clear to auscultation bilaterally SKIN: good turgor
--- OUTSIDE RECORDS SUMMARY | 2024-07-11 12:52 | XMS_ITS ---
Author Name [facility] Organization Unknown Results Test Name/Text Value Interpretation Date Range Source PREALB SERPL NEPH [facility] 30.5mg/dL Normal [id number] 17 - 34 [facility] CREAT SERPL [facility] 0.8mg/dL Normal [id number] 0.7 - 1.3 [facility] BILIRUB SERPL [facility] 0.6mg/dL Normal [id number] 0.3 - 1 [facility] AST SERPL [facility] 17U/L Normal [id number] 5 - 40 [facility] Glomerular filtration rate/1.73 sq M. predicted 96 Normal [id number] 60 - [facility] HCO3 SER [facility] 33mmol/L Above high normal [id number] 24 - 32 [facility] POTASSIUM SERPL [facility] 3.9mmol/L Normal [id number] 3.5 - 5.1 [facility] ANION GAP SERPL [facility] 10mmol/L Normal [id number] 5 - 14 [facility] PROT SERPL [facility] 7.2g/dL Normal [id number] 6.4 - 8.5 [facility] CALCIUM SERPL [facility] 9.4mg/dL Normal [id number] 8.4 - 10 .2 [facility] ALP SERPL-CCNC 62U/L Normal [id number] 34 - 104 [facility] SODIUM SERPL [facility] 143mmol/L Normal [id number] 135 - 145 [facility] GLUCOSE P FAST SERPL [facility] 80mg/dL Normal [id number] 70 - 99 [facility] ALBUMIN SERPL BCG [facility] 4.4g/dL Normal [id number] 3.5 - 5 [facility] CHLORIDE SERPL [facility] 100mmol/L Normal [id number] 98 - 10 7 [facility] ALT SERPL [facility] 17U/L Normal [id number] 7 - 52 [facility] BUN SERPL [facility] 19mg/dL Normal [id number] 9 - 20 [facility] DIFFERENTIAL TYPE AUTOMATED Normal [id number] [facility] NEUTROPHILS NFR BLD AUTO 54.9% Normal [id number] 44 - 74 [facility] BASOPHILS NFR BLD AUTO 0.6% Normal 0 - 2 [facility] MONOCYTES NFR BLD AUTO 6.1% Normal 2 - 12 [facility] HCT VFR BLD AUTO 46.8% Normal 40 - 54 [facility] MONOCYTES NO. BLD AUTO 0.6K/uL Normal [id number] 0 - 0.8 [facility] RDW RBC AUTO RTO 12.9% Normal 12.1 - 17. 7 [facility] PLATELET NO. BLD AUTO 281K/uL Normal 150 - 450 [facility] EOSINOPHIL NO. BLD AUTO 0.2K/uL Normal 0 - 0.5 [facility] RBC NO. BLD AUTO 5.15M/uL Normal 4.7 - 6 [facility] MCH RBC QN AUTO 31.4pg Normal [id number] 25 - 33 [facility] MCHC RBC AUTO MCNC 34.6g/dL Normal 32 - 36 [facility] HGB BLD [facility] 16.2g/dL Normal [id number] 13.5 - 18 [facility] BASOPHILS IN BLOOD BY AUTOMATED COUNT 0.1K/uL Normal 0 - 0.2 [facility] WBC NO. BLD AUTO 9.3K/uL Normal 4 - 10.5 [facility] EOSINOPHIL NFR BLD AUTO 2.7% Normal [id number] 0 - 6 [facility] LYMPHOCYTES NFR BLD AUTO 35.7% Normal 20 - 48 [facility] MCV RBC AUTO 90.9fL Normal [id number] 78 - 100 [facility] NEUTROPHILS NO. BLD AUTO 5.1K/uL Normal [id number] 1.8 - 7.8 [facility] LYMPHOCYTES NO. BLD AUTO 3.3K/uL Above high normal 1 - 3.2 [facility] PMV BLD AUTO 7.7fL Normal 7.4 - 11.4 [facility] History of Medication Use Medication Directions Dispensed Refills Start Date End Date Stat oxycodone 5 mg tablet 4 completed lisinopril-hydroCHLO ROthiazide (PRINZIDE,ZESTORETIC ) tablet 20-25 mg Take 1 tablet by mouth daily. active bromfenac 0.09 % eye drops USE1 DROP BOTH EYES EVERY DAY IN THE [place] 4 active alendronate 70 mg tablet PLEASE SEE ATTACHED FOR DETAILED DIRECTIONS 4 active aspirin EC tablet 81 mg 81 mg, Oral, 2 times daily after meals, First dose on Thu07/28/23 at 0900, For 28 daysIs this a new medication order or a home medication: New Medication OrderPlease select an indication: Other 07/27/2023 4 active lisinopril 20 mg-hydrochlorothiazi de 25 mg tablet active HYDROmorphone (DILAUDID) injection 0.2 mg 0.2 mg, Intravenous, Every 15 min PRN, moderate pain (4-6), Starting on Thu07/27/23 at 0831, PACU/Phase 1FOR PACU USE ONLY.??If unable to take by mouth.??Do not exceed 2 mg.?? 07/27/2023 active gabapentin (NEURONTIN) capsule 100 mg 100 mg, Oral, Once, On Thu07/27/23 at 0515, For 1 dose, Pre-opHold for patients greater than 75 years old. 07/27/2023 4 completed acetaminophen (TYLENOL EXTRA STRENGTH) 500 MG tablet 1,000 mg 1,000 mg, Oral, Once, On Thu07/27/23 at 0515, For 1 dose, Pre-op 07/27/2023 4 completed metoclopramide (REGLAN) injection 10 mg 10 mg, Intravenous, Every 6 hours PRN, nausea, vomiting, Starting on Thu07/27/23 at 0831, PACU/FloorTo be given if zofran is ineffective. 07/27/2023 active alendronate 70 mg tablet PLEASE SEE ATTACHED FOR DETAILED DIRECTIONS active acetaminophen 500 mg capsule Take 2 capsules every 6 hours by oral route. 4 completed oxyCODONE (ROXICODONE) 5 MG immediate release tablet 5 mg 5 mg, Oral, Every 4 hours PRN, moderate pain (4-6), achieve pain scale less than or equal to 4, Starting on Thu07/27/23 at 0831, For 2 doses, PACU/Phase 1Give when patient is able to take PO. 07/27/2023 active lisinopril-hydroCHLO ROthiazide (PRINZIDE,ZESTORETIC ) tablet 20-25 mg Take 1 tablet by mouth daily. active tranexamic acid 650 mg tablet completed methocarbamol (ROBAXIN) 750 MG tablet Take 1 tablet (750 mg total) by mouth 4 (four) times a day. 07/27/2023 active bromfenac 0.09 % eye drops USE1 DROP BOTH EYES EVERY DAY IN THE [facility] active Allergies Allergen Reaction Severity Comment Documented Date Source Statu s SULFA (SULFONAMIDE ANTIBIOTICS) [facility] Problems Problem Status Onset Date Problem Type Date of Resolution Source Anemia active EncounterDiagnosisAct [facility] History of repair of hip joint active 2023-08-13 ProblemAct [facility] Osteoarthritis of hip active EncounterDiagnosisAct [facility] Osteoarthritis of right hip joint active 2023-07-10 ProblemAct [facility] Temporal arteritis active 2023-07-15 ProblemAct [facility] Obesity (BMI 30-39.9) active 2023-07-15 ProblemAct [facility] History of hypertension active 2023-07-15 ProblemAct [facility] Psoriatic arthritis active 2023-07-15 ProblemAct [facility] Osteoarthritis of right hip active 2023-07-15 ProblemAct [facility] Arthritis of hip active 2023-07-10 ProblemAct [facility] Family history of pulmonary embolism active EncounterDiagnosisAct [facility] Inadequate oral intake active EncounterDiagnosisAct [facility]
--- OUTSIDE RECORDS SUMMARY | 2024-07-11 12:52 | XMS_ITS | Clinical Summary ---
Author Organization [facility] Address [address] [place] [id number] Care Team Providers Care Neon Installer Name Role Phone Kurtis Garcia MD Primary Care Provider Surgical History Surgery Date Site/Laterality Comments COLONOSCOPY PROCEDURE:COLONOSCOPY OTHER SURGICAL HISTORY 2021 PROCEDURE:TEMPORAL ARTERY BIOPSY / LIGATION TOTAL HIP ARTHROPLASTY 07/27/2023 Right PROCEDURE:TOTAL HIP ARTHROPLASTY;COMMENT:Procedure: REPLACEMENT TOTAL HIP; Surgeon: Jamshid Burns MD; [facility]: [facility] ([facility] Service: Orthopedics; Laterality: Right; Medical History Medical History Date Comments Temporal arteritis (CMS/HCC) DX: Temporal arteritis (HCC) Osteoarthritis DX:Osteoarthriti s Psoriatic arthritis (CMS/HCC) DX :Psoriatic arthritis (HCC) Hypertension DX:Hypertension History of dizziness DX:History of dizziness Family History Medical History Relation Name Comments Heart disease Father Anesthesia problems Sister Pulmonary embolism Sister Relation Name Status Comments Father (Age 60) Mother (Age 90) dementia Sister Social History Tobacco Use Types Packs/Day Years Used Date Smoking Tobacco: Never Smokeless Tobacco: Never Alcohol Use Standard Drinks/Week Comments Not Currently 0 (1 standard drink = 0.6 oz pur e alcohol) Sex and Gender Information Value Date Recorded Sex Assigned at Not on file Legal Sex Male 4:46 PM EDT Gender Identity Not on file Sexual Orientation Not on file Obstetrics History Last Filed Vital Signs Vital Sign Reading Time Taken Comments Blood Pressure 120/85 07/15/2023 11:23 AM EST Sitting Left arm Pulse 90 07/15/2023 11:23 AM EST Temperature - - Respiratory Rate - - Oxygen Saturation - - Inhaled Oxygen Concentration - - Weight 102 kg (224 lb) 07/15/2023 11:23 AM EST Height 173 cm (5' 8.11 ) 07/15/2023 11: 23 AM EST Body Mass Index 33.95 07/15/2023 11:23 AM EST Plan of Treatment Health Maintenance Due Date Last Done Comments COVID-19 Vaccine (#1) 1960 DTaP,Tdap,and Td Vaccines (1 - Tdap) 1974 Pneumococcal Vaccine: 50+ Ye ars (1 of 1 - PCV) 2005 Zoster Vaccines (1 of 2) 2005 Cholesterol Screening (Lipid Panel) 12/08/2023 Colorectal Cancer Screening: Colonoscopy 12/08/2023 Depression Screening 12/08/2023 Falls Risk Assessment 12/08/2023 Hepatitis C Screening 12/08/2023 Social Influencers of Health Screening 12/08/2023 Influenza Vaccine (#1) 2024 RSV Immunization Patients 60 + Years Old (1 - 1-dose 75+ series) 2030 HIB Vaccines Aged Out No longer eligi ble based on patient's age to complete this topic HPV Vaccines Aged Out No longer eligi ble based on patient's age to complete this topic Hepatitis A Vaccines Aged Out No long er eligible based on patient's age to complete this topic Hepatitis B Vaccines Aged Out No long er eligible based on patient's age to complete this topic IPV Vaccines Aged Out No longer eligi ble based on patient's age to complete this topic MMR Vaccines Aged Out No longer eligi ble based on patient's age to complete this topic Meningococcal ACWY Vaccine Aged Out N o longer eligible based on patient's age to complete this topic Meningococcal B Vacine Aged Out No lo nger eligible based on patient's age to complete this topic RSV Immunization Patients Un syed 20 months Aged Out No longer eligible b ased on patient's age to complete this topic Varicella Vaccines Aged Out No longer eligible based on patient's age to complete this topic Medical Devices Implanted Type Area Furnace Repair Mechanic Device Identifier Shelf Expiration Date Model / Serial / Lot Tritanium Cluster Hole Shell 56mm Str-How [id number] Implanted:Qty: 1 on 07/27/2023 by Jamshid Burns MD Right: Hip [employer] [id number] 05/27/2028 702-04-56F / / [id number] Hip Insert Trdnt 0deg 40mm Stry-How [id number] Implanted:Qty: 1 on 07/27/2023 by Jamshid Burns MD Right: Hip [employer] [id number] 04/25/2028 623-00-40F / / [id number] Lp Hex Screw 6.5x25mm Stry-Howm [id number] Implanted:Qty: 1 on 07/27/2023 by Jamshid Burns MD Right: Hip [employer] [id number] 05/24/2028 8902-3101 / / [id number] Lp Hex Screw 6.5x30mm Stry-Howm [id number] Implanted:Qty: 1 on 07/27/2023 by Jamshid Burns MD Right: Hip [employer] [id number] 12/23/2027 2114-8634 / / [id number] Hip Head Delta Taper 40mm Stry-Howm [id number] Implanted:Qty: 1 on 07/27/2023 by Jamshid Burns MD Right: Hip [employer] [id number] 05/06/2028 6519-1-040 / / [id number] Hip Stem Collared High Sz 5 Stry-Howm [id number] Implanted:Qty: 1 on 07/27/2023 by Jamshid Burns MD Right: Hip [employer] [id number] 05/19/2028 [id number] / / [id number] Hip Sleeve Adapt V40 -2.5mm Stry-Howm [id number] Implanted:Qty: 1 on 07/27/2023 by Jamshid Burns MD Right: Hip [employer] [id number] 05/13/2028 6519-T-025 / / [id number] Care Teams Neon Installer Relationship Specialty Start Date End Date Kurtis Garcia MD [facility] - General 07/23/23
== END 2024-07-11 10:53 | disposition home or self-care (01) ==
LOC: HO.LNP 10:52
PROVIDERS: Visit Provider Internal Medicine
DX: I10 Essential (primary) hypertension (principal); E78.00 Pure hypercholesterolemia, unspecified; Z12.5 Encounter for screening for malignant neoplasm of prostate
CPT/HCPCS: 80053; 80061; 81001; 84153; 85025